=== PATIENT | female | born 1995 | race Caucasian/White ===

== ENCOUNTER 2019-05-08 14:25 | Outpatient (CLI) | payer MEDICAID, SELFPAY ==
[2019-05-08 15:24] VITALS: BMI 31.7
[2019-05-08 15:41] LABS: Mucous, Urine 0 SEEN /hpf (<or=2+); Red Blood Cells-Urine 0 SEEN /hpf (0-5)
[2019-05-08 15:43] LABS: Color, Urine Yellow (Yellow); Glucose, Dipstick 50 mg/dl (Normal); Ketone-Dipstick 5 mg/dl (Negative); Leukocyte Esterase-Dipstick 100 /ul (Negative); Nitrite-Dipstick Negative (Negative); Occult Blood-Urine Negative /ul (Negative); Protein-Dipstick 30 mg/dl (Negative); Urine Bilirubin Dipstick Negative (Negative); Urine Clarity Clear (Clear); Urine Urobilinogen Normal (Normal); Urine pH 6.5 (5.0 - 8.0)
[2019-05-08 15:55] LABS: Squamous Epithelial Cells - UA 10-25 SEEN /hpf (5-10)
[2019-05-08 15:56] LABS: Bacteria 1+ /hpf (None Seen); White Blood Cells 0-5 SEEN /hpf (0-5)
[2019-05-08] MEDS: hydrOXYzine PAM 25 MG Capsule 50 MG PO (16:03)
--- NOTE | 2019-05-08 16:04 | OB.TRI.NOTE ---
- Problem List (1) 33 weeks gestation of Status: Acute (2) Rash and nonspecific skin eruption Status: Acute History of Present Illness Date of Service: 05/08/19 Was patient seen by the physician?: Yes Reason For Visit: PAIN/RASH Date of Service: 05/08/19 Final KAITY: 06/23/19 Gestational age: 33 Weeks and 3 Days History of Present Illness: 24yo G1 @ 33 3/7wga with c/o cramping, headache and persistent rash. She is here with her boyfriend Sae. Rash started approximately 7-10 days ago on her abdomen. It is itchy. Over time it spread onto extremities and hands and feet. Patient works in an office in IT. She denies outdoor activities. Denies new clothes or change in detergents, hygienic products. Has cats, dogs and pet rat. Neither of her housemate have a rash. No prior similar rash. She denies fever, chills, nausea, chest pain, palpitations. +dyspnea but she relates this is mostly with reclining and increased activity and has occurred since gaining weight in before the rash. No chest pain or lightheadedness She has a mild headache and declined Tylenol here. She also has some cramping that is also mild. Allergies No Known Allergies Allergy (Unverified 05/08/19 15:25) - Pertinent Past Medical History Medical History: Past Medical History (Last Updated 05/08/19 @ 20:12 by Cece Martines MD) Bipolar depression Laboratory Studies: Laboratory Tests 05/08/19 Range/Units 15:10 Urine Color Yellow (Yellow) Urine Clarity Clear (Clear) Urine pH 6.5 (5.0 - 8.0) Ur Specific [place] 1.020 (1.002-1.030) Urine Protein 30 H (Negative) mg/dl Urine Glucose (UA) 50 H (Normal) mg/dl Urine Ketones 5 H (Negative) mg/dl Urine Occult Blood Negative (Negative) /ul Urine Nitrite Negative (Negative) Urine Bilirubin Negative (Negative) mg/dL Urine Urobilinogen Normal (Normal) mg/dl Ur Leukocyte Esterase 100 H (Negative) /ul Urine RBC 0 SEEN (0-5) /hpf Urine WBC 0-5 SEEN (0-5) /hpf Ur Squamous Epith Cells 10-25 SEEN (5-10) /hpf Urine Bacteria 1+ (None Seen) /hpf Urine Mucus 0 SEEN (<or=2+) /hpf Physical Exam Vitals: avss General: Alert, Oriented x3, Cooperative, No apparent distress, - - generalized urticarial lesions some coalescing into patches particularly around ankles and abdomen HEENT: Atraumatic, Normocephalic Cardiovascular: Regular rate, Regular Rhythm, Normal S1, Normal S2 Lungs: Clear to auscultation, Normal air movement Abdomen: Soft, Non Tender, Non-Distended, Gravid Extremities:: No edema, No tenderness/swelling Neurological: Neuro grossly intact Estimated gestational size: Appropriate for gestational size NST - FHR Rate Baby A Baseline: 125 Variability:: Moderate Accelerations:: 15 x 15 Decelerations:: None NST Reactive:: Yes FHR Category:: Category I Uterine Activity:: 0/10 Impression/Plan 24yo G1 @ 33 3/7wga with possible PUPPPS and other dermititis -Atarax PO -NST reactive, Cat I -LFTs normal -No evidence of labor -Will plan for d/c home. Pt advised f/u with primary OB Dr. Purdy on Friday 05/11 as scheduled. Continue with oral steroids as previously prescribed. Rx Atarax placed. Avoid skin products and detergents with fragrances and dyes. Code Visit Office Visits / Consults: [id number] OV L2 New
[2019-05-08 16:05] LABS: ALB/GLOB Ratio 0.5 RATIO (0.9-2.4); AST(SGOT) 12 U/L (15-37); Alanine Aminotransfer ALT/SGPT 22 U/L (13-56); Albumin, Serum 2.5 g/dL (3.2-5.0); Alkaline Phosphatase 111 U/L (45-117); Anion Gap 8 (5-15); BUN 9 mg/dL (7-18); BUN/Creat Ratio 13.5 RATIO (10-20); Calcium,Total 8.6 mg/dL (8.5-10.1); Chloride 108 mmol/L (98-107); Creatinine, Serum 0.66 mg/dL (0.55-1.02); EST Glomerular Filtration Rate 116 mL/min (>60); Est Glom Filt Rate - Afr Amer 140 mL/min (>60); Estimated Creatinine Clearance 127.81 ml/min; Globulin 4.8 g/dL (2.2-4.2); Glucose 136 mg/dL (74-106); Protein, Total 7.3 g/dL (6.4-8.2); Sodium Level 138 mmol/L (136-145)
--- NOTE | 2019-05-08 16:16 | PCM.DC ---
- Discharge Diagnoses Current Active Problems: Current Active and Chronic Problems 33 weeks gestation of (Acute) Rash and nonspecific skin eruption (Acute) You will use the following diet at home:: No restrictions Your food should be the consistency of: Regular Discharge Activity: Return to Normal Activity Allergies/Adverse Reactions: Allergies No Known Allergies Allergy (Unverified 05/08/19 15:25) Medications to take at Discharge Calcium Carbonate [Calcium] 500 mg PO DAILY 05/08/19 DiphenhydrAMINE [Benadryl] 50 mg PO BID PRN PRN 05/08/19 Doxylamine Succinate [Unisom] 25 mg PO QHS 05/08/19 Hydroxyzine Pamoate [Vistaril] 50 mg PO Q8H PRN #60 cap 05/08/19 Loratadine [Claritin] 10 mg PO DAILY 05/08/19 Prednisone 20 mg PO DAILY 05/08/19 Vits [Prenatabs FA] 1 tab PO DAILY 05/08/19 The following prescriptions were given: Hydroxyzine Pamoate [Vistaril] 50 mg PO Q8H PRN #60 cap PRN Reason: Itching Transmission Status: Pending to [facility] Primary Care Physician: Hortencia Tracey PA [Primary Care Provider] - Test Results: Test results from this visit will be discussed in further detail at your follow-up appointment, if applicable. Please Follow Up With: Rad Purdy MD
== END 2019-05-08 16:23 | disposition home or self-care (01) ==
LOC: WPOUT 14:53 → OBT 14:54
PROVIDERS: Family Provider Physician Assistant Medical; PCP Physician Assistant Medical; Referring Provider Obstetrics & Gynecology; Visit Provider Obstetrics & Gynecology
DX: O26.893 Other specified pregnancy related conditions, third trimester (principal); L30.9 Dermatitis, unspecified; Z3A.33 33 weeks gestation of pregnancy
CPT/HCPCS: 36415; 59025; 59050; 80053; 81001; 94760; 99218; G0378